=== PATIENT | female | born 1990 | race Caucasian/White ===

== ENCOUNTER 2020-07-07 17:12 | Emergency (ER) | payer OTHER ==
[~2020-07-07 17:12] MED LIST: Iopamidol 370 76% 100 ML VIAL ONE
[2020-07-07 18:20] LABS: Anion Gap 16 mmol/L (10-20); BUN (Urea Nitrogen) 13 mg/dL (7.0-18.7); Calc. Creatinine Clearance 0 mL/min (70-130); Calcium 9.4 mg/dL (7.8-10.44); Carbon Dioxide 25 mmol/L (22-29); Chloride 104 mmol/L (98-107); Estimated GFR-MDRD 88; Glucose 103 mg/dL (70-105); Potassium 4.5 mmol/L (3.5-5.1); Sodium 140 mmol/L (136-145)
[2020-07-07 18:23] LABS: BHCG - Serum Negative (NEGATIVE); Pregs Control Background? CLEAR/WHITE (CLR/WHITE); Pregs Control Bar Appear? YES (CONTROL BAR)
[2020-07-07] MEDS ORDERED: diphenhydrAMINE 50 MG/ML VIAL ONE (18:51)
[2020-07-07] MEDS ORDERED: Metoclopramide HCl 10 MG/2 ML VIAL ONE (18:51)
[2020-07-07] MEDS ORDERED: Ketorolac Tromethamine 30 MG/ML VIAL ONE (19:28)
--- NOTE | 2020-07-07 19:41 | CT ---
CT ANGIO OF THE HEAD AND NECK: Date: 07-07-2020 Technique: A CT angio of the neck was performed after a bolus of IV contrast. MIP reconstructions wer e then done. FINDINGS: Both carotid arteries fill normally. There is no sign of stenosis or dissection in either. No abnorma lity was seen at either bifurcation. The carotid arteries continued to be normal in appearance throug h their entire extent. Each internal carotid artery terminates normally in the [place] with no sign of obstruction. Both vertebral arteries fill as expected. There is no sign of stenosis, obstruction, or dissection in the vertebral arteries. The vessels immediately around the arch of the aorta showed no specific abnormality of concern. IMPRESSION: No significant vascular findings in the neck. CT ANGIO OF THE BRAIN: Normal filling of each intracranial part of each internal carotid artery was seen. There is no sign o f obstruction or stenosis. The anterior cerebral, middle cerebral and posterior cerebral arteries all fill adequately. The vertebral arteries terminate in a normal appearing basilar artery. The basilar artery terminates in normal appearing posterior cerebral arteries. There is also good symmetrical cathy w into each superior cerebellar artery. Some of the images provided constitute a post contrast CT of the brain. There were no areas of pathol ogical enhancement seen. IMPRESSION: No significant vascular findings in the head. Normal filling of all major arteries as described. Preliminary findings called to Gaudencio in ER at 1851 on 07-07-2020. POS: HOME
--- NOTE | 2020-07-07 19:46 | CT ---
CT OF THE BRAIN WITHOUT CONTRAST: Date: 07-07-2020 FINDINGS: The ventricles are normal in size with no shift. No intracranial bleeding or extraaxial hematoma was seen. There is no sign of mass, edema, or stroke. The skull appears normal. The visible paranasal sinuses and mastoid air cells are clear. IMPRESSION: No acute intracranial findings. Preliminary report called to Vish in ER at 1851 at 07-07-2020. POS: HOME
== END 2020-07-07 19:45 | disposition home or self-care (01) ==
LOC: BURERS 17:12
DX: R51.9 Headache, unspecified (principal)
CPT/HCPCS: 70450; 70496; 70498; 80048; 84703; 96365; 96375; J1200; J1885; J2765; Q9967

== ENCOUNTER 2021-07-20 15:41 | Emergency (ER) | payer OTHER ==
[2021-07-20] MEDS ORDERED: Metoclopramide HCl 10 MG/2 ML VIAL ONE (16:25)
[2021-07-20] MEDS ORDERED: Dexamethasone 10 MG/ML VIAL ONE (16:25)
[2021-07-20] MEDS ORDERED: diphenhydrAMINE 50 MG/ML VIAL ONE (16:25)
[2021-07-20 16:31] LABS: #Monocytes 0.1 thou/uL (0.11-0.59); #Neutrophils 8.7 thou/uL (1.40-6.50); %Basophils 0.4 % (0.0-1.0); %Eosinophils 0.2 % (0.0-10.0); %Lymphocytes 9.8 % (21.0-51.0); %Monocytes 1.2 % (0.0-10.0); %Neutrophils 88.4 % (42.0-75.0); Hemoglobin 13.5 g/dL (12.0-16.0); Mean Corpuscular HGB CONC 32.9 g/dL (32.0-36.0); Mean Corpuscular Hemoglobin 25.6 pg (27.0-31.0); Mean Platelet Volume 6.5 fL (7.4-10.4); Platelet Count 258 thou/uL (130-400); RBC Distribution Width 12.8 % (11.5-14.5); Red Blood Cell (RBC) Count 5.25 mill/uL (4.20-5.40); White Blood Cell (WBC) Count 9.9 thou/uL (4.8-10.8)
[2021-07-20 16:39] LABS: INR-International Normal Ratio 1.1; Prothrombin Time 14.1 sec (12.0-14.7)
[2021-07-20 16:48] LABS: ALT (SGPT) 22 U/L (8-55); AST (SGOT) 15 U/L (5-34); Albumin 4.7 g/dL (3.5-5.0); Alkaline Phosphatase 105 U/L (40-110); Anion Gap 15 mmol/L (10-20); BHCG - Serum Negative (NEGATIVE); BUN (Urea Nitrogen) 11 mg/dL (7.0-18.7); Bilirubin, Total 0.5 mg/dL (0.2-1.2); Calc. Creatinine Clearance 0 mL/min (70-130); Calcium 9.8 mg/dL (7.8-10.44); Carbon Dioxide 24 mmol/L (22-29); Chloride 106 mmol/L (98-107); Globulin 3.1 g/dL (2.4-3.5); Glucose 109 mg/dL (70-105); Potassium 3.2 mmol/L (3.5-5.1); Pregs Control Background? CLEAR/WHITE (CLR/WHITE); Pregs Control Bar Appear? YES (CONTROL BAR); Protein, Total 7.8 g/dL (6.0-8.3); Sodium 142 mmol/L (136-145)
[2021-07-20] MEDS ORDERED: Ketorolac Tromethamine 30 MG/ML VIAL ONE (17:24)
[2021-07-20] MEDS ORDERED: Morphine 10 MG/ML VIAL ONE (18:30)
[2021-07-20 19:19] LABS: Bilirubin Negative (Negative); Blood, Urine Negative (Negative); Clarity Clear (Clear); Glucose, Urine (Dipstick) Negative (Negative); Ketone, Urine 40 mg/dL (Negative); Leukocyte Small (Negative); Nitrite Negative (Negative); Protein, Urine (Dipstick) Negative (Neg-Trace); Urobilinogen 0.2 mg/dL (Less than 2)
[2021-07-20 19:23] LABS: Bacteria/HPF 1+ HPF (None Seen); RBC/HPF 0-3 HPF (0-3); Squamous Epithelial 0-3 HPF (0-3); WBC/HPF 0-3 HPF (0-3)
[2021-07-20] MEDS ORDERED: HYDROcodone/Acetaminophen 5/325 mg Tablet ONE (19:38)
== END 2021-07-20 19:46 | disposition home or self-care (01) ==
LOC: BURERS 15:41
DX: G43.909 Migraine, unspecified, not intractable, without status migrainosus (principal); Z79.899 Other long term (current) drug therapy
CPT/HCPCS: 36415; 70450; 80053; 81003; 81015; 84703; 85025; 85610; 96374; 96375; J1100; J1200; J1885; J2270; J2765